=== PATIENT | male | born 1995 | race Caucasian/White ===

== ENCOUNTER 2016-06-23 17:17 | Inpatient (IN) | payer OTHER ==
[~2016-06-23] VITALS: Ht 154.9 cm; Wt 65.2 kg
[2016-06-23 19:01] LABS: BASO # 0.1 (0.0-0.2); BASO % 0.5 % (0.0-2.0); EOS # 0.1 (0.0-0.7); GRAN % 80.6 % (42.2-75.2); HEMOGLOBIN 14.6 g/dl (13.5-18.0); LYMPH # 1.2 (1.2-3.4); LYMPH % 9.9 % (20.0-51.0); MEAN CELL VOLUME 88 fl (80.0-100.0); MEAN CORPUSCULAR HEMOGLOBIN 29 pg (27.0-31.0); MEAN CORPUSCULAR HGB CONC 33 g/dl (33.0-37.0); MEAN PLATELET VOLUME 10.5 fl (7.4-10.4); MONO # 0.9 (0.1-0.6); PLATELET COUNT 252 K/mm3 (130-400); RED BLOOD COUNT 5.02 M/mm3 (4.20-5.60); REDCELL DISTRIBUTION WIDTH-CV 12.7 % (11.5-14.5); WHITE BLOOD COUNT 12.4 K/mm3 (4.8-10.8)
[2016-06-23 19:06] LABS: ADJUSTED CALCIUM 9.1 mg/dL (8.4-10.2); ALANINE AMINOTRANSFERASE 26 U/L (21-72); ALBUMIN 4.7 gm/dL (3.5-5.0); ALKALINE PHOSPHATASE 68 U/L (50-136); ANION GAP 11 mmol/L (7-16); BILIRUBIN,TOTAL 0.6 mg/dL (0.0-1.0); BLOOD UREA NITROGEN 17 mg/dL (9-20); CALCIUM 9.7 mg/dL (8.4-10.2); CARBON DIOXIDE 29 mmol/L (22-30); CHLORIDE 102 mmol/L (98-107); CREATININE, serum 1.03 mg/dL (0.66-1.25); GLUCOSE 108 mg/dL (74-106); LIPASE 59 U/L (23-300); POTASSIUM 4.2 mmol/L (3.4-5.0); SODIUM 141 mmol/L (137-145); TOTAL PROTEIN 7.3 gm/dL (6.4-8.2)
[2016-06-23 19:18] LABS: TROPONIN-I < 0.012 ng/mL (0.000-0.034)
[2016-06-23 22:13] VITALS: BP 118/76; PULSE 79; TEMP 98.5
[2016-06-23 23:44] VITALS: BP 125/80; PULSE 70; TEMP 98
[2016-06-24] VITALS (7 sets, daily range): BP systolic 101–128; BP diastolic 57–89; PULSE 69–104; TEMP 98–98.5
[2016-06-25 02:09] VITALS: BP 104/69; PULSE 51; TEMP 97.2
[2016-06-25 04:40] VITALS: BP 102/65; PULSE 73; TEMP 97.5
[2016-06-25 08:18] VITALS: BP 109/73; PULSE 61; TEMP 98
== END 2016-06-25 13:35 | disposition home or self-care (01) | DRG 201 ==
LOC: COL.ER 17:17 → SURG 19:20
PROVIDERS: Physician Assistant
PROC: 0W9900Z Drainage of Right Pleural Cavity with Drainage Device, Open Approach (ICD-10-PCS; principal; 2016-06-24)
DX: J93.83 Other pneumothorax (principal)
CPT/HCPCS: OP; A7048; G0378; J1170; J2405

== ENCOUNTER → 2016-06-29 | Outpatient (CLI) | payer OTHER | LOC: COL.RAD 09:51 | DX: Z87.09 Personal history of other diseases of the respiratory system (principal) ==